=== PATIENT | male | born 1980 | race Caucasian/White ===

== ENCOUNTER 2021-04-07 10:00 | Emergency (ER) | payer OTHER, MEDICAID, SELFPAY ==
--- NOTE | 2021-04-07 10:16 | ED.GENADULT ---
HPI - General Adult General Chief complaint: Recheck/Abnormal Lab/Rx Stated complaint: Needs med refill Time Seen by Provider: 04/07/21 10:00 History of Present Illness HPI narrative: 40-year-old male presents with his mother and a chief complaint of needing a prescription ref[place]. [place] to cover him for 2 weeks worth of his olanzapine 5 mg twice daily but has been having trouble getting it refilled, establishing with a new provider given the travel and holidays. He has no symptoms and specifically denies suicidal ideation, homicidal ideation, visual or auditory hallucinations. He has no depression or anxiety. He denies runny nose, sore throat or cough. He has had no chest pain or shortness of breath. He denies nausea, vomiting, diarrhea or abdominal pain. He denies any exposure to persons known to be COVID positive. Related Data Previous Rx's Medication Instructions Recorded hydroxyzine HCl 25 mg tablet 25 mg PO BID PRN #14 tab 04/07/21 olanzapine 5 mg tablet 5 mg PO BID #60 tab 04/07/21 Allergies Allergy/AdvReac Type Severity Reaction Status Date / Time Penicillins Allergy Verified 04/07/21 10:48 Patient History Social History Smoking Status: Current every day smoker Exam Narrative Exam Narrative: GEN: AOx3 and in mild distress EYES: Pupils are equal, round, and reactive to light and accommodation. Extraoccular muscles are intact bilaterally. There is no subconjunctival hemorrhage or exudate. CHEST: Lungs are clear to auscultation bilaterally and free of wheezes, rales, or rhonchi. Heart rate is regular rhythm, there are no murmurs, clicks, rubs, or gallops. There is no chest wall tenderness. ABD: Abdomen is soft and nontender. There is no guarding or rebound. Bowel sounds are normal in all 4 quadrants. There is no mass or organomegaly. EXT: Full painless ROM of all extremities with no loss of sensation or strength. SKIN: Warm, pink, and dry. No erythema or rash Initial Vital Signs Initial Vital Signs: Vital Signs Pulse Rate 86 04/07/21 10:45 Respiratory Rate 18 04/07/21 10:45 Blood Pressure 136/78 04/07/21 10:45 Pulse Oximetry 97 04/07/21 10:45 Discharge Plan Departure Patient Disposition: Home Clinical Impression: Anxiety, Encounter for medication refill Instructions: DI for Anxiety -- Adult Activity Restrictions/Additional Instructions: *You have been diagnosed with [medication refill] *What to do: *Please continue to take your regular medications as directed. [ x] New medication prescriptions sent to your pharmacy: [[facility]] [ ] New medication written as a paper prescription [ ] No new medications given * as we discussed it will be important to establish with a local primary care provider. Please call the [facility] at [phone]. Please let them know you were seen in the emergency department and we have requested that you follow-up. Let them know that you do not have a local primary care provider and need help with this *Return to Emergency Department if you should have any new, worsening or concerning symptoms Prescriptions: New olanzapine 5 mg tablet 5 mg PO BID Qty: 60 0RF hydroxyzine HCl 25 mg tablet 25 mg PO BID PRN (Reason: anxiety) Qty: 14 0RF
[2021-04-07 10:45] VITALS: BP 136/78; PULSE 86; RESP 18; O2SAT 97
== END 2021-04-07 11:17 | disposition home or self-care (01) ==
PROVIDERS: Emergency Provider Emergency Medicine
DX: F41.9 Anxiety disorder, unspecified (principal); Z76.0 Encounter for issue of repeat prescription; F17.200 Nicotine dependence, unspecified, uncomplicated
CPT/HCPCS: 99281